=== PATIENT | female | born 1990 | race Hispanic/Latino ===

== ENCOUNTER 2018-02-15 23:16 | Emergency (ER) | payer OTHER ==
[2018-02-15 23:44] VITALS: BP 119/81; PULSE 89; RESP 16; TEMP 98.3; O2SAT 99
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
== END 2018-02-16 01:25 | disposition home or self-care (01) ==
LOC: H.ER 23:16
DX: Z77.21 Contact with and (suspected) exposure to potentially hazardous body fluids (principal); Y99.0 Civilian activity done for income or pay

== ENCOUNTER 2018-08-10 16:11 | Emergency (ER) | payer OTHER ==
[2018-08-10 16:24] VITALS: BP 104/63; PULSE 111; RESP 16; O2SAT 98
--- NOTE | 2018-08-10 16:42 | ED PDOC ---
HPI: General Adult Time Seen by Provider: 08/10/18 16:20 Chief Complaint (Nursing): GI Problem Chief Complaint (Provider): Cough History Per: Patient History/Exam Limitations: no limitations Onset/Duration Of Symptoms: Days (Yesterday) Additional Complaint(s): Pt. with 1 episode of nonbloody vomit and nonbloody diarrhea. No abd pain. Has sore throat but able to swallow. Weakness all over and body aches/chills. Cough. No headaches, dizziness, numbness, tingles. No neck pain. No fever. Took nyquil x1. No back pain. 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 Past Medical History Reviewed: Nursing Documentation, Vital Signs Vital Signs: Last Vital Signs Temp 98.7 F 08/10/18 16:21 Pulse 111 H 08/10/18 16:21 Resp 16 08/10/18 16:21 BP 104/63 08/10/18 16:21 Pulse Ox 98 08/10/18 16:21 - Medical History PMH: No Chronic Diseases - Surgical History Surgical History: No Surg Hx - Family History Family History: States: Unknown Family Hx - Living Arrangements Living Arrangements: With Family - Home Medications Home Medications: Ambulatory Orders Medication Instructions Recorded Benzonatate [Tessalon Perles] 100 mg PO BID PRN 5 Days sgl 08/10/18 Ibuprofen [Motrin] 600 mg PO TID 7 Days tab 08/10/18 Ondansetron ODT [Zofran ODT] 4 mg PO BID PRN 4 Days odt 08/10/18 - Allergies Allergies/Adverse Reactions: Allergies Allergy/AdvReac Type Severity Reaction Status Date / Time No Known Allergies Allergy Verified 08/10/18 16:20 Review of Systems ROS Statement: Except As Marked, All Systems Reviewed And Found Negative Constitutional: Positive for: Chills, Weakness ENT: Positive for: Nose Congestion, Throat Pain Respiratory: Positive for: Cough Gastrointestinal: Positive for: Nausea, Vomiting, Diarrhea Musculoskeletal: Positive for: Other (body aches) Neurological: Positive for: Weakness Physical Exam - Reviewed Nursing Documentation Reviewed: Yes Vital Signs Reviewed: Yes - Physical Exam Appears: Positive for: Non-toxic, No Acute Distress Head Exam: Positive for: ATRAUMATIC, NORMAL INSPECTION, NORMOCEPHALIC Skin: Positive for: Normal Color, Warm, DRY Eye Exam: Positive for: EOMI, Normal appearance, PERRL ENT: Positive for: Nasal Congestion. Negative for: Pharyngeal Erythema, Tonsillar Exudate Neck: Positive for: Normal, Painless ROM, Supple Cardiovascular/Chest: Positive for: Regular Rate, Rhythm Respiratory: Positive for: CNT, Normal Breath Sounds Gastrointestinal/Abdominal: Positive for: Normal Exam, Soft. Negative for: Tenderness Back: Positive for: Normal Inspection. Negative for: L CVA Tenderness, R CVA Tenderness Extremity: Positive for: Normal ROM. 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 Negative for: Motor/Sensory Deficits, Facial Droop - Laboratory Results Interpretation Of Abn Labs: flu and strep neg - ECG O2 Sat by Pulse Oximetry: 98 Pulse Ox Interpretation: Normal - Progress ED Course And Treament: 1815: Stable. AAOx3. Pain free. Tolerated po. Fu with pcp. Disposition - Clinical Impression Clinical Impression: URI (upper respiratory infection) - Patient ED Disposition Is Patient to be Admitted: No Counseled Patient/Family Regarding: Studies Performed, Diagnosis, Need For Followup, Rx Given - Disposition Referrals: [facility] [Outside] - 08/11/18 Disposition: Routine/Home Disposition Time: 18:19 Condition: STABLE Additional Instructions: Return if not better in 3 days. Prescriptions: Benzonatate [Tessalon Perles] 100 mg PO BID PRN 5 Days sgl PRN Reason: Cough Ibuprofen [Motrin] 600 mg PO TID 7 Days tab Ondansetron ODT [Zofran ODT] 4 mg PO BID PRN 4 Days odt PRN Reason: Nausea/Vomiting Instructions: Viral Upper Respiratory Infection, Adult (DC) Forms: [employer] ([place]ian)
[2018-08-10 18:42] VITALS: TEMP 97.8
== END 2018-08-10 18:44 | disposition home or self-care (01) ==
LOC: H.ER 16:11
DX: J06.9 Acute upper respiratory infection, unspecified (principal)